=== PATIENT | female | born 1950 | race Caucasian/White ===

== ENCOUNTER → 2017-02-24 | Outpatient (CLI) | payer MEDICARE, BC ==
[~2017-02-24] MED LIST: ASPI-557 PO; FISH1CAP59 PO; GLUC1CAP25 PO; LOSA50TA52 PO; METO25TA6 PO; ROSU20TA PO
--- NOTE | 2017-02-24 09:44 | DI ---
Indication: ITS.REASON: M25.562 PAIN IN LEFT KNEE PROCEDURE: MRI KNEE LEFT W/O CONTRAST: Encounter: Initial Comparison: None Technique: Multiplanar multisequence MR imaging of the left knee was performed without contrast. Findings: The lateral meniscus is intact. Complex tear of the body and posterior horn of the medial meniscus which is partially extruded. Tear extends into the posterior root. The ACL and PCL are intact. The MCL is displaced by the meniscal extrusion, but intact. Lateral collateral ligament complex is intact. The extensor mechanism is maintained. No acute fracture. Partial-thickness cartilage loss in the lateral compartment with small osteophytes. Medial compartment shows areas of deep partial and full-thickness cartilage loss with osteophyte formation and subchondral edema in the femur. Patellofemoral compartment cartilage shows near full-thickness loss in the median ridge and medial facet. Large joint effusion. No Winkler's cyst. Muscular signal intensity is normal. 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 .
== END ==
LOC: IMA 07:47
PROVIDERS: ATTEND Orthopaedic Surgery
DX: S83.232A Complex tear of medial meniscus, current injury, left knee, initial encounter (principal); M17.12 Unilateral primary osteoarthritis, left knee; M25.562 Pain in left knee